=== PATIENT | male | born 1945 | race Caucasian/White ===

== ENCOUNTER 2018-06-04 09:22 | Day surgery (SDC) | payer MEDICARE, OTHER ==
[2018-06-04] MEDS: Polymyxin B/Trimethoprim 10 ML Bottle EYELF SCH ×4 (09:44→11:59)
[2018-06-04] MEDS: Brimonidine 0.2% Ophth Soln 5 ML Bottle EYELF SCH ×4 (09:49→11:59)
[2018-06-04] MEDS: Phenylephrine 2.5% Ophth Soln 2 ML Bot EYELF SCH ×6 (09:56→11:33)
[2018-06-04] MEDS: Tropicamide 1% Ophth Soln 15 ML Bottle EYELF SCH ×4 (10:00→10:40)
--- NOTE | 2018-06-04 10:02 | PCM.PREANE ---
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) Cardiovascular: No Symptoms (CABG with 3 vessels/Stents placed times 5/several NC's), Palpitations, Lightheadedness (with lower HR) Gastrointestinal: No Symptoms Neurological: No Symptoms (History of back surgeries), Tingling (arthritis in hands more on the left than right) Other: Reports: None, Neck Pain (no pain but plate noted in neck.) - Physical Assessment NPO Status Date: 06/03/18 NPO Status Time: 20:00 Pulse: 53 O2 Sat by Pulse Oximetry: 97 Respiratory Rate: 16 Blood Pressure: 127/54 Temperature: 36.4 C Vital Signs: Last Vital Signs Temp 36.4 C 06/04/18 09:35 Pulse 53 L 06/04/18 09:35 Resp 16 06/04/18 09:35 BP 127/54 L 06/04/18 09:35 Pulse Ox 97 06/04/18 09:35 Height: 1.7 m Weight: 85.275 kg ASA Class: 3 Mental Status: Alert & Oriented x3 Airway Class: Mallampati = 2 Dentition: Reports: Normal Dentition, Caries Thyro-Mental Finger Breadths: 3 Mouth Opening Finger Breadths: 3 ROM/Head Extension: Full Lungs: Clear to Auscultation, Normal Respiratory Effort Cardiovascular: Regular Rate, Regular Rhythm, No Murmurs - Allergies Allergies/Adverse Reactions: Allergies Allergy/AdvReac Type Severity Reaction Status Date / Time No Known Allergies Allergy Verified 06/03/18 13:13 - Anesthesia Plan Pre-Op Medication Ordered: Beta Megan Beta Megan: Carvedilol Med Last Dose Date: 06/04/18 Med Last Dose Time: 06:00 - Acknowledgements Anesthesia Type Planned: MAC Pt an Appropriate Candidate for the Planned Anesthesia: Yes Alternatives and Risks of Anesthesia Discussed w Pt/Guardian: Yes Pt/Guardian Understands and Agrees with Anesthesia Plan: Yes PreAnesthesia Questionnaire - HOME MEDS Home Medications: Home Meds Aspirin [Ecotrin] 81 mg PO DAILY 08/24/15 [History] Carvedilol [Coreg] 3.125 mg PO BID 08/24/15 [History] Clopidogrel [Plavix] 75 mg PO DAILY 08/24/15 [History] Nitroglycerin 0.4 mg SL ASDIRECTED 08/24/15 [History] Rosuvastatin Calcium [Crestor] 40 mg PO DAILY 08/24/15 [History] Furosemide [Lasix] 20 mg PO Q48H 06/03/18 [History] Furosemide [Lasix] 40 mg PO Q48H 06/03/18 [History] Losartan [Cozaar] 25 mg PO DAILY 06/03/18 [History] Sertraline [Zoloft] 25 mg PO DAILY 06/03/18 [History] - CURRENT (IN HOUSE) MEDS Current Meds: Current Medications Brimonidine Tartrate (Alphagan 0.2% Ophth Soln) 0 ml EYELF ASDIRECTED BYRON Stop: 06/04/18 18:00 Last Admin: 06/04/18 09:49 Dose: 1 drop Cefuroxime Sodium (Zinacef) 0 mg EYELF ASDIRECTED BYRON Stop: 06/04/18 18:00 Lidocaine HCl (Xylocaine-Mpf 1%) 0 ml INJECT ASDIRECTED BYRON Stop: 06/04/18 18:00 Phenylephrine HCl (Gerry-Synephrine 2.5% Ophth Soln) 0 ml EYELF ASDIRECTED BYRON Stop: 06/04/18 18:00 Pilocarpine HCl (Pilocar 4% Ophth Soln) 0 ml EYELF ASDIRECTED BYRON Stop: 06/04/18 18:00 Polymyxin/Trimethoprim Sulfate (Polytrim Ophth Soln) 0 ml EYELF ASDIRECTED BYRON Stop: 06/04/18 18:00 Last Admin: 06/04/18 09:44 Dose: 1 drop Tetracaine HCl (Tetracaine 0.5% Steri-Unit Aissatou) 0 ml EYELF ASDIRECTED BYRON Stop: 06/04/18 18:00 Tropicamide (Mydriacyl 1% Ophth Soln) 0 ml EYELF ASDIRECTED BYRON Stop: 06/04/18 18:00
[2018-06-04] MEDS: Cefuroxime 10 MG/ML SYRINGE EYELF SCH ×2 (10:33→11:58)
[2018-06-04] MEDS: Tetracaine HCl/PF 0.5% 4 ML Bottle EYELF SCH ×5 (10:33→11:50)
[2018-06-04] MEDS: Lidocaine 1% PF 2 ML SDV INJECT SCH ×2 (10:33→11:49)
[2018-06-04] MEDS: Pilocarpine 4% Ophth Soln 15 ML Bot EYELF SCH ×2 (10:34→11:59)
--- NOTE | 2018-06-04 12:17 | PCM48HPAN ---
Post Anesthesia Note - EVALUATION WITHIN 48HRS OF ANESTHETIC Vital Signs in Normal Range: Yes Patient Participated in Evaluation: Yes Respiratory Function Stable: Yes Airway Patent: Yes Cardiovascular Function Stable: Yes Hydration Status Stable: Yes Pain Control Satisfactory: Yes Nausea and Vomiting Control Satisfactory: Yes Mental Status Recovered: Yes Pulse Rate: 53 Resp Rate: 17 Temperature: 36.4 C Blood Pressure: 127/54
[2018-06-04 12:18] VITALS: BP 127/54
== END 2018-06-04 12:10 | disposition home or self-care (01) ==
LOC: JD.SDS 09:22
PROVIDERS: ATTEND Ophthalmology
DX: H25.813 Combined forms of age-related cataract, bilateral (principal); H02.834 Dermatochalasis of left upper eyelid; H02.831 Dermatochalasis of right upper eyelid; H16.223 Keratoconjunctivitis sicca, not specified as Sjogren's, bilateral; E78.00 Pure hypercholesterolemia, unspecified; Z87.891 Personal history of nicotine dependence; Z79.2 Long term (current) use of antibiotics; Z95.5 Presence of coronary angioplasty implant and graft; Z79.899 Other long term (current) drug therapy
CPT/HCPCS: 66984; A9270; C1780; J0697; J2001

== ENCOUNTER 2018-07-09 07:36 | Day surgery (SDC) | payer MEDICARE, OTHER ==
[~2018-07-09 07:36] MED LIST: Tropicamide 1% Ophth Soln 3 ML Bottle EYERT SCH
[2018-07-09] MEDS: Polymyxin B/Trimethoprim 10 ML Bottle EYERT SCH ×4 (07:45→09:37)
[2018-07-09] MEDS: Brimonidine 0.2% Ophth Soln 5 ML Bottle EYERT SCH ×4 (07:51→09:37)
--- NOTE | 2018-07-09 07:52 | PCM.PREANE ---
Preanesthetic Assessment - Anesthesia/Transfusion/Family Hx Anesthesia History: Prior Anesthesia Without Reaction Family History of Anesthesia Reaction: No Transfusion History: No Prior Transfusion(s) Intubation History: Unknown - Review of Systems General: No Symptoms Pulmonary: No Symptoms Cardiovascular: No Symptoms Gastrointestinal: No Symptoms Neurological: No Symptoms Other: Reports: None - Physical Assessment NPO Status Date: 07/08/18 NPO Status Time: 07:00 Height: 1.7 m Weight: 86.183 kg ASA Class: 3 Mental Status: Alert & Oriented x3 Airway Class: Mallampati = 2 Dentition: Reports: Normal Dentition ROM/Head Extension: Limited/Partial Lungs: Clear to Auscultation, Normal Respiratory Effort Cardiovascular: Regular Rate, Regular Rhythm - Allergies Allergies/Adverse Reactions: Allergies Allergy/AdvReac Type Severity Reaction Status Date / Time No Known Allergies Allergy Verified 07/08/18 13:49 - Blood Blood Available: No - Anesthesia Plan Beta Megan: Metoprolol Med Last Dose Date: 07/09/18 Med Last Dose Time: 06:00 - Acknowledgements Anesthesia Type Planned: MAC Pt an Appropriate Candidate for the Planned Anesthesia: Yes Alternatives and Risks of Anesthesia Discussed w Pt/Guardian: Yes Pt/Guardian Understands and Agrees with Anesthesia Plan: Yes Additional Comments: stents heart -2005- lumbar procedures, neck, cataract. hip shoulder PreAnesthesia Questionnaire - HOME MEDS Home Medications: Home Meds Aspirin [Ecotrin] 81 mg PO DAILY 08/24/15 [History] Carvedilol [Coreg] 3.125 mg PO BID 08/24/15 [History] Clopidogrel [Plavix] 75 mg PO DAILY 08/24/15 [History] Nitroglycerin 0.4 mg SL ASDIRECTED 08/24/15 [History] Rosuvastatin Calcium [Crestor] 40 mg PO DAILY 08/24/15 [History] Furosemide [Lasix] 20 mg PO Q48H 06/03/18 [History] Furosemide [Lasix] 40 mg PO Q48H 06/03/18 [History] Losartan [Cozaar] 25 mg PO DAILY 06/03/18 [History] Sertraline [Zoloft] 25 mg PO DAILY 06/03/18 [History] - CURRENT (IN HOUSE) MEDS Current Meds: Current Medications Brimonidine Tartrate (Alphagan 0.2% [facility]) 0 ml EYERT ASDIRECTED BYRON Stop: 07/09/18 18:00 Cefuroxime Sodium (Zinacef) 0 mg EYERT ASDIRECTED BYRON Stop: 07/09/18 18:00 Lidocaine HCl (Xylocaine-Mpf 1%) 1 ml INJECT ASDIRECTED BYRON Stop: 07/09/18 18:00 Phenylephrine HCl (Gerry-Synephrine 2.5% Ophth Soln) 0 ml EYERT ASDIRECTED BYRON Stop: 07/09/18 18:00 Pilocarpine HCl (Pilocar 4% Ophth Soln) 0 ml EYERT ASDIRECTED BYRON Stop: 07/09/18 18:00 Polymyxin/Trimethoprim Sulfate (Polytrim Ophth Soln) 0 ml EYERT ASDIRECTED BYRON Stop: 07/09/18 18:00 Tetracaine HCl (Tetracaine 0.5% Steri-Unit Aissatou) 0 ml EYERT ASDIRECTED BYRON Stop: 07/09/18 18:00 Tropicamide (Mydriacyl 1% Ophth Soln) 0 ml EYERT ASDIRECTED BYRON Stop: 07/09/18 18:00
[2018-07-09] MEDS: Phenylephrine 2.5% Ophth Soln 2 ML Bot EYERT SCH ×6 (07:56→09:26)
[2018-07-09] MEDS: Tropicamide 1% Ophth Soln 15 ML Bottle EYERT SCH ×4 (08:02→08:50)
[2018-07-09] MEDS: Lidocaine 1% PF 2 ML SDV INJECT SCH ×2 (08:41→09:29)
[2018-07-09] MEDS: Tetracaine HCl/PF 0.5% 4 ML Bottle EYERT SCH ×3 (08:41→09:32)
[2018-07-09] MEDS: Cefuroxime 10 MG/ML SYRINGE EYERT SCH ×2 (08:45→09:36)
[2018-07-09] MEDS: Pilocarpine 4% Ophth Soln 15 ML Bot EYERT SCH ×2 (08:46→09:37)
[2018-07-09 09:55] VITALS: BP 148/56
== END 2018-07-09 09:49 | disposition home or self-care (01) ==
LOC: JD.SDS 07:36
PROVIDERS: ATTEND Ophthalmology
DX: H25.811 Combined forms of age-related cataract, right eye (principal); I10 Essential (primary) hypertension; E78.00 Pure hypercholesterolemia, unspecified; M19.90 Unspecified osteoarthritis, unspecified site; Z98.42 Cataract extraction status, left eye; Z96.1 Presence of intraocular lens; Z95.5 Presence of coronary angioplasty implant and graft; Z87.891 Personal history of nicotine dependence; Z83.518 Family history of other specified eye disorder; Z79.82 Long term (current) use of aspirin; Z79.02 Long term (current) use of antithrombotics/antiplatelets; Z79.899 Other long term (current) drug therapy
CPT/HCPCS: 66984; C1780; J0697; J2001